=== PATIENT | male | born 1950 | race African-American/Black ===

== ENCOUNTER 2023-06-19 21:36 | Emergency (ER) | payer MEDICARE, MEDICAID, SELFPAY ==
--- NOTE | ~2023-06-19 | XR_ITS ---
EXAMINATION: XR chest 1V portable DATE: 06/19/2023 22:21 INDICATION: Fall. TECHNIQUE: A single frontal view of the chest was obtained. COMPARISON: None. FINDINGS: There is no pneumonia, pleural effusion, or pneumothorax. The heart size is normal. IMPRESSION: 1. No acute cardiopulmonary disease. Reviewed, dictated and finalized at location A. ECTIONAL CLASSIFICATION COUNSELOR
--- NOTE | ~2023-06-19 | CT_ITS ---
EXAMINATION: CT brain wo con DATE: 06/19/2023 23:19 INDICATION: Fall. Dementia. Epilepsy. TECHNIQUE: Computed tomography (CT) of the head was performed without intravenous contrast. The mA wa s adjusted according to patient size. Iterative reconstruction technique was employed. The dose-lengt h product was 1513.33 mGy-cm. COMPARISON: None FINDINGS: There are old infarcts involving the bilateral frontal lobes. There is no intracranial hemo rrhage, acute infarction, or abnormal intracranial mass lesion. The ventricles are normal in size. Th ere is mild mucosal thickening in the paranasal sinuses. The orbits are normal. There are bilateral m astoid effusions. IMPRESSION: 1. Old infarcts in the frontal lobes. Reviewed, dictated and finalized at location A. HOUSE SUPERVISOR
--- NOTE | ~2023-06-19 | CT_ITS ---
EXAMINATION: CT lumbar spine wo con DATE: 06/19/2023 23:19 INDICATION: Fall. TECHNIQUE: Computed tomography (CT) of the lumbar spine was performed without intravenous contrast. A utomated exposure control and iterative reconstruction technique were employed. The dose-length produ ct was 806.40 mGy-cm. COMPARISON: None FINDINGS: There is a 3.5 cm cyst in right kidney. Aortic atherosclerosis is noted. There is 6 degrees levocurvature of lumbar spine. There is mild chronic anterior wedging of T11 and T12 vertebral phil s. There are bridging endplate osteophytes from T10 to T12, consistent with diffuse idiopathic skelet al hyperostosis (DISH). There is mildly decreased disc height at T11-T12. The following disc levels a re specifically discussed: L1-L2: The disc is bulging. There is moderate bilateral facet joint osteoarthritis. There is mild jevon ateral neural foraminal stenosis. There is mild central canal stenosis. L2-L3: The disc is bulging. There is moderate bilateral facet joint osteoarthritis. There is mild jevon ateral neural foraminal stenosis. There is mild central canal stenosis. L3-L4: The disc is bulging. There is severe bilateral facet joint osteoarthritis. There is mild bilat eral neural foraminal stenosis. There is mild central canal stenosis. L4-L5: The disc is bulging. There is severe bilateral facet joint osteoarthritis. There is mild bilat eral neural foraminal stenosis. There is moderate central canal stenosis. L5-S1: The disc is bulging. There is severe bilateral facet joint osteoarthritis. There is mild bilat eral neural foraminal stenosis. There is mild central canal stenosis. IMPRESSION: 1. Moderate lumbar spondylosis. Reviewed, dictated and finalized at location A. METER CHECKER
--- NOTE | ~2023-06-19 | CT_ITS ---
EXAMINATION: CT cervical spine wo con DATE: 06/19/2023 23:19 INDICATION: Neck injury. Fall. TECHNIQUE: Computed tomography (CT) of the cervical spine was performed without intravenous contrast. Automated exposure control and iterative reconstruction technique were employed. The dose-length pro duct was 261.43 mGy-cm. COMPARISON: None FINDINGS: There is mild scarring at the lung apices. There is 8 degrees dextrocurvature of cervical s pine. Vertebral body heights are normal. There are bulky anterior endplate osteophytes at all levels. The osteophytes are bridging from C5 to T1 and at T2-T3, consistent with diffuse idiopathic skeletal hyperostosis (DISH). There is a fracture of the anterior osteophytes at C5-C6 with extension of the fracture line into the C6 vertebral body. There is mildly decreased disc height at C6-C7. The followi ng disc levels are specifically discussed: C2-C3: There is mild bilateral uncovertebral joint osteoarthritis. There is mild right and severe lef t facet joint osteoarthritis. There is no neural foraminal stenosis. There is mild central canal sten osis. C3-C4: There is severe right and mild left uncovertebral joint osteoarthritis. There is severe bilate ral facet joint osteoarthritis. There is mild bilateral neural foraminal stenosis. There is mild cent ral canal stenosis. C4-C5: There is mild bilateral uncovertebral joint osteoarthritis. There is moderate right and severe left facet joint osteoarthritis. There is no neural foraminal stenosis. There is mild central canal stenosis. C5-C6: There is mild bilateral uncovertebral joint osteoarthritis. There is mild bilateral facet join t osteoarthritis. There is mild bilateral neural foraminal stenosis. There is mild central canal sten osis. C6-C7: There is mild bilateral uncovertebral joint osteoarthritis. There is mild lateral facet joint osteoarthritis. There is no neural foraminal stenosis. There is mild central canal stenosis. C7-T1: There is no uncovertebral joint osteoarthritis. There is mild bilateral facet joint osteoarthr itis. There is no neural foraminal stenosis. There is no central canal stenosis. IMPRESSION: 1. Nondisplaced fracture involving C6 vertebral body and the anterior osteophytes at C5-C6. 2. DISH. 3. Mild cervical spondylosis. Reviewed, dictated and finalized at location A. CONNECTOR REPAIRER IMPRESSION: 1. Nondisplaced fracture involving C6 vertebral body and the anterior osteophyt es at C5-C6. 2. DISH. 3. Mild cervical spondylosis.
[2023-06-19 21:36] VITALS: BP 137/65; PULSE 95; RESP 12; TEMP 36.2; O2SAT 99
--- NOTE | 2023-06-19 21:51 | ECG_ITS ---
Measurements Intervals [place] Rate: 94 P: 67 WY: 169 QRS: 51 QRSD: 82 T: 74 QT: 341 QTc: 428 Interpretive Statements SINUS RHYTHM POSSIBLE LEFT ATRIAL ENLARGEMENT [-0.1mV P WAVE IN V1/V2] BORDERLINE ECG NO PREVIOUS ECG AVAILABLE FOR COMPARISON Electronically Signed On 06-20-2023 8:19:47 DIRECTORY OPERATOR by Mitchell Torres M.D.
[2023-06-19 21:52] VITALS: BP 137/65; PULSE 95; RESP 12; O2SAT 99
--- NOTE | 2023-06-19 21:54 | ED.FALL ---
HPI - Fall General Chief Complaint: Fall Stated Complaint: fall Time Seen by Provider: 06/19/23 21:42 History of Present Illness HPI Narrative: 73-year-old male with a history of diabetes, dementia epilepsy reports via EMS from [facility] for a ground level fall. Patient arrived the hospital to cervical collar in place. Per EMS, the fall was unwitnessed. [facility] staff heard a thump and rushed to the patient. None the patient on the ground. Patient arrives with abrasion to his forehead otherwise no evidence of trauma. He admits to having neck pain and a slight headache but denies other pain or injury. Patient is A&O x1 at baseline. [facility] contacted and states patient normally ambulates with 2 assistants. Related Data Allergies Allergy/AdvReac Type Severity Reaction Status Date / Time No Known Allergies Allergy Verified 06/20/23 01:14 Review of Systems Review of Systems: CONSTITUTIONAL: Denies fever, chills, or sweats. EYES: Denies visual changes, redness, or discharge. ENT: Denies rhinorrhea, congestion, sore throat, or otalgia. CARDIOVASCULAR: Denies chest pain, palpitations, or edema. RESPIRATORY: Denies cough or dyspnea. GASTROINTESTINAL: Denies abdominal pain, nausea, vomiting, or diarrhea. GENITOURINARY: Denies dysuria or hematuria. SKIN: Denies rash or itching. MUSCULOSKELETAL: See HPI NEUROLOGIC: see HPI PSYCHIATRIC: Denies anxiety or depression. Exam Narrative: GENERAL: chronically ill-appearing elderly male lying in exam bed. HEAD: Normocephalic. Superficial abrasion to the left forehead, bleeding controlled. EYES: PERRLA and EOMI. ENT: Nares clear, no rhinorrhea or epistaxis. Mucous membranes moist. NECK: Cervical collar in place. CHEST: Clear to auscultation. No respiratory distress. No tenderness, ecchymosis, step-offs or deformities to chest wall or ribs HEART: Regular rate and rhythm. No murmur heard. Normal peripheral pulses. ABDOMEN: Soft, nontender, nondistended, normal active bowel sounds. EXTREMITIES: Normal range of motion. No edema. no tenderness to bilateral upper or lower extremities with full range of motion. SKIN: Warm, dry, no rash. NEURO: No focal deficits. Alert and oriented x1. Cranial nerves 2-12 intact. Strength 5/5 in BUE and BLE. Sensation intact throughout. Unable to perform pronator drift or urxdap-cd-nney secondary to mental status. Course Vital Signs Vital signs: Vital Signs Temperature 97.2 F L 06/19/23 21:36 Pulse Rate 95 06/19/23 21:36 Respiratory Rate 12 06/19/23 21:36 Blood Pressure 137/65 06/19/23 21:36 Pulse Oximetry 99 06/19/23 21:36 Oxygen Delivery Room Air 06/19/23 21:36 Temperature 97.2 F L 06/19/23 21:36 Pulse Rate 88 06/20/23 00:24 Respiratory Rate 13 06/20/23 00:24 Blood Pressure 119/67 06/20/23 00:24 Pulse Oximetry 100 06/20/23 00:24 Oxygen Delivery Room Air 06/19/23 21:36 MDM - Fall MDM Narrative Medical decision making narrative: 73-year-old male reports via EMS for evaluation of a ground level fall that occurred prior to arrival. See HPI for further history. Vitals are stable. Exam is significant for the above. He is A&O x1 which is his baseline. Broad workup initiated given poor historian and the fall was unwitnessed. Cbc without leukocytosis. His hemoglobin is 11.6 with normal MCV. No priors for comparison. Chemistries are largely unremarkable. Urinalysis with nitrite positive urinary tract infection. Urine culture pending. EKG shows sinus rhythm, no ischemic changes. Troponin normal. CT head shows grossly no acute intracranial hemorrhage or acute transcortical infarct. 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 CT cervical spine shows a fracture involving the anterior osteophyte bridging the C5 extending into the superior endplate of C6. Lumbar spine shows no acute osseous pathology. CT cervical spine resul
[2023-06-19 22:01] VITALS: BP 140/66; PULSE 94; RESP 13; O2SAT 99
[2023-06-19 22:12] LABS: Basophils Percent Auto 0.4 % (0.2-1.2); Eosinophils Absolute Auto 0.4 K/mm3 (0-0.3); Eosinophils Percent Auto 7.3 % (0-4.4); Hemoglobin 11.6 g/dL (14.0-18.0); Immature Granulocyte Absolute 0.01 K/mm3 (0.00-0.031); Immature Granulocyte Percent A 0.2 % (0-0.5); Lymphocytes Absolute Auto 1.45 K/mm3 (0.9-3.2); Lymphocytes Percent Auto 27.9 % (18.3-44.2); Mean Corpuscular HGB Conc 30.5 g/dl (32-36); Mean Corpuscular Hemoglobin 29.4 pg (26-34); Mean Corpuscular Volume 96.4 fl (80-100); Mean Platelet Volume 11.1 fl (7.4-10.4); Monocytes Absolute Auto 0.5 K/mm3 (0.1-0.6); Neutrophils Absolute Auto 2.8 K/mm3 (1.3-6.7); Neutrophils Percent Auto 54.2 % (45.5-73.1); Platelet Count Result 228 k/mm3 (150-375); Red Blood Count 3.94 M/mm3 (4.6-6.20); Red Cell Distribution Width 14.7 % (11.5-14.5); White Blood Count 5.2 K/mm3 (4.5-10.0)
[2023-06-19 22:25] LABS: Alanine Aminotransferase 12 U/L (6-50); Albumin Level 4.1 g/dL (3.5-5.1); Alkaline Phosphatase 67 U/L (38-126); Anion Gap 5 mmol/L (8-16); Aspartate Amino Transferase 18 U/L (17-59); Bilirubin,Total 0.4 mg/dL (0.2-1.3); Blood Urea Nitrogen 16 mg/dL (9-20); Calcium 9.7 mg/dL (8.4-10.2); Carbon Dioxide 30 mmol/L (22-30); Chloride 106 mmol/L (98-107); Estimated CRCL calculation 73 ml/min; Estimated Glomerular Filt Rate > 60; Glucose 107 mg/dL (65-110); Potassium 4.1 mmol/L (3.4-5.0); Sodium 141 mmol/L (137-145)
[2023-06-19 22:35] LABS: Troponin I < 0.012 ng/mL (0.000-0.034)
[2023-06-19 22:55] LABS: Appearance Urine Cloudy (Clear); Bacteria Urine 4+ /hpf; Bilirubin Urine Negative (Negative); Blood Urine Negative (Negative); Color Urine Yellow (Yellow); Glucose Urine UA Negative (Negative); Ketones Urine Negative (Negative); Leukocyte Esterase Ur 2+ LEU/UL (Negative); Nitrate Urine Positive (Negative); Non Pathogenic Casts 0-2; Protein Urine Trace mg/dL (Negative); RBC Urine 0-2 /hpf (0-2); Specific Grav Ur 1.018 (1.001-1.035); Squamous Epithelial Cell Urine None seen /hpf (Few); Urobilinogen Urine 0.2 mg/dL (<2.0); WBC Urine 51-100 /hpf
[2023-06-19 23:23] LABS: Add Urine Microscopic? YES
[2023-06-19 23:57] VITALS: PULSE 88; RESP 15
[2023-06-20] VITALS (7 sets, daily range): BP systolic 112–131; BP diastolic 61–70; PULSE 82–91; RESP 11–16; O2SAT 95–100
[2023-06-20] MEDS: CEPHALEXIN 500 MG CAPSULE PO (01:59)
== END 2023-06-20 03:40 ==
PROVIDERS: Emergency Provider Physician Assistant; PCP Internal Medicine
DX: S12.401A Unspecified nondisplaced fracture of fifth cervical vertebra, initial encounter for closed fracture (principal); N30.00 Acute cystitis without hematuria; E11.9 Type 2 diabetes mellitus without complications; F03.90 Unspecified dementia, unspecified severity, without behavioral disturbance, psychotic disturbance, mood disturbance, and anxiety; W18.30XA Fall on same level, unspecified, initial encounter
CPT/HCPCS: 36415; 70450; 71045; 72125; 72131; 80053; 81001; 84484; 85025; 87077; 87086; 87186; 93005; 99284; A9270

== ENCOUNTER 2023-07-21 18:36 | Emergency (ER) | payer MEDICARE, MEDICAID, SELFPAY ==
[2023-07-21] VITALS (14 sets, daily range): BP systolic 142–246; BP diastolic 66–124; PULSE 89–118; RESP 10–20; TEMP 36.9; O2SAT 95–100
--- NOTE | ~2023-07-21 | XR_ITS ---
[id number] 07/21/2023 19:19 Indication: Left knee pain. Patient contracted. Procedure: 2 views left knee Comparison: No prior studies for comparison. Findings: There is flexion at the knee, possibly due to contraction. No gross fracture or traumatic m alalignment. No foreign bodies. Impression: 1: No acute bone or joint abnormality. Reviewed, dictated and finalized at location A. Impression: 1: No acute bone or joint abnormality.
--- NOTE | ~2023-07-21 | CT_ITS ---
EXAMINATION: CT brain wo con DATE: 07/21/2023 19:31 INDICATION: Status post fall. Dementia. TECHNIQUE: Computed tomography (CT) of the head was performed without intravenous contrast. The dose- length product was 681.00 mGy-cm. Automated exposure control and iterative reconstruction technique w ere employed. COMPARISON: CT dated 06/19/2023 FINDINGS: There are 2 parenchymal hemorrhages of the frontal lobes, right temporal-parietal lobe and left thalamus. There is surrounding vasogenic edema in the right temporal lobe. Cannot exclude a smal l component of subarachnoid hemorrhage in the frontal lobes. No midline shift. No ventriculomegaly. P aranasal sinuses and mastoids are pneumatized. No depressed skull fractures. IMPRESSION: 1. Acute hemorrhage of the frontal lobes, left thalamus and right temporal-parietal lobe with moderat e surrounding vasogenic edema in the right temporal lobe. Possible subarachnoid component to the fron alpesh lobe hemorrhages. Dr. Ted Saini discussed with Dr. Francesco Wilks PA-C at 07/21/2023 19:38 CDT. Reviewed, dictated and finalized at location A. IMPRESSION: 1. Acute hemorrhage of the frontal lobes, left thalamus and right temporal-kailash etal lobe with moderate surrounding vasogenic edema in the right temporal lobe. Possible subarachnoid component to the frontal lobe hemorrhages. Dr. Ted Saini discussed with Dr. Francesco Wilks PA-C at 07/21/2023 19:38 CDT.
--- NOTE | ~2023-07-21 | XR_ITS ---
XR hip LT 2V w AP pelvis 07/21/2023 19:19 Indication: Pelvic pain. Contraction of the patient. Procedure: AP pelvis and 2 views left hip Comparison: No prior studies for comparison. Findings: Severe osteoarthritis of the left hip. No acute fracture or traumatic malalignment. No fore ign bodies. There is lower lumbar spondylosis. Impression: 1: Severe osteoarthritis of the left hip. Reviewed, dictated and finalized at location A. Impression: 1: Severe osteoarthritis of the left hip.
--- NOTE | ~2023-07-21 | CT_ITS ---
EXAMINATION: CT cervical spine wo con DATE: 07/21/2023 19:34 INDICATION: Status post fall. Neck pain. TECHNIQUE: Computed tomography (CT) of the cervical spine was performed without intravenous contrast. The dose-length product was 410 mGy-cm. Automated exposure control and iterative reconstruction technique were employed. COMPARISON: CT dated 06/19/2023 FINDINGS: Prominent bridging osteophytes at multiple levels consistent with diffuse idiopathic skelet al hyperostosis. There are fractures of the anterior osteophytes at C2-3, C3-4, C4-5 and C5-6 which a re unchanged from prior examination. No acute fracture or traumatic malalignment. Mild dextroscoliosi s. Odontoid process is normal. Mild multilevel uncinate and facet hypertrophy. Lung apices are normal . No significant paraspinal soft tissue abnormality. Craniovertebral junction is unremarkable. IMPRESSION: 1. No acute abnormality of the cervical spine. 2: Flowing ventral osteophytes at multiple levels with associated ventral osteophyte fractures descri bed above which appear chronic. Reviewed, dictated and finalized at location A. IMPRESSION: 1. No acute abnormality of the cervical spine. 2: Flowing ventral osteophytes at multiple levels with associated ventral osteo phyte fractures described above which appear chronic.
--- NOTE | ~2023-07-21 | XR_ITS ---
XR chest ET placement 07/21/2023 22:03 Indication: Postintubation. Respiratory distress Procedure: AP portable chest Comparison: 06/19/2019 Findings: Endotracheal tube tip 5.4 cm above the patsy. Mild bilateral interstitial infiltrates. Tien g bases with peribronchial thickening. No pleural effusion or pneumothorax. No acute osseous abnormal ity. Impression: 1: Bibasilar interstitial infiltrates which may represent edema or pneumonia. Reviewed, dictated and finalized at location A. Impression: 1: Bibasilar interstitial infiltrates which may represent edema or pneumonia.
--- NOTE | 2023-07-21 18:50 | ED.FALL ---
HPI - Fall General Chief Complaint: Fall Stated Complaint: fall, head lac Time Seen by Provider: 07/21/23 18:39 Source: patient Mode of arrival: EMS Limitations: dementia History of Present Illness HPI Narrative: This is a 73-year-old male with PMH of diabetes, dementia, seizure disorder and recent cervical spine fracture who presents to the ED via EMS for chief complaint of head injury and fall. He is coming from [facility] unit for evaluation after her having a fall while in dining room. EMS reports patient loss balance when he tried to stand up. The staff reported a brief loss of consciousness. They state that he hit his head and suffered a laceration. Denied any seizure-like activity. The fall was witnessed. Denied postictal phase. The patient is A&O x1 at baseline and unable to provide any useful information regarding the fall today. He does point to his left thigh and knee when asked about where his pain is. Related Data Home Medications Medication Instructions Recorded Confirmed atorvastatin 10 mg tablet mg 07/21/23 07/21/23 carvedilol 25 mg tablet mg 07/21/23 ergocalciferol (vitamin D2) 1,250 07/21/23 mcg (50,000 unit) capsule hydralazine 50 mg tablet mg 07/21/23 lamotrigine 200 mg tablet mg 07/21/23 levetiracetam 500 mg tablet mg PO 07/21/23 lisinopril 40 mg tablet mg 07/21/23 metformin 1,000 mg tablet mg 07/21/23 tamsulosin 0.4 mg capsule mg PO 07/21/23 Allergies Allergy/AdvReac Type Severity Reaction Status Date / Time No Known Allergies Allergy Verified 07/21/23 18:51 Review of Systems Review of Systems: All systems as dictated in HPI Exam Narrative: GENERAL: Well-appearing, well-nourished, and in no acute distress. HEAD: Normocephalic, atraumatic. EYES: PERRLA and EOMI. ENT: Nares clear, no rhinorrhea or epistaxis. Mucous membranes moist. Oropharynx without tonsillar hypertrophy exudate or other lesions. NECK: Supple. No adenopathy or masses. CHEST: No respiratory distress. Clear to auscultation. No wheezes rales or rhonchi HEART: Regular rate and rhythm. No murmur heard. Normal peripheral pulses. ABDOMEN: Soft, nontender, nondistended, normal active bowel sounds. MSK: Normal range of motion. No edema. No tenderness throughout the extremities. SKIN: 3 cm laceration to the left from scalp/forehead. Bleeding controlled. NEURO: Alert. Responds to his name but will not answer the question appropriately. Responds to questions with mumbled words and follows basic commands. Moves all extremities spontaneously. PSYCH: Normal mood and affect. Course Vital Signs Vital signs: Vital Signs Temperature 98.4 F 07/21/23 18:38 Pulse Rate 95 07/21/23 18:38 Respiratory Rate 16 07/21/23 18:38 Pulse Oximetry 99 07/21/23 18:38 Oxygen Delivery Room Air 07/21/23 18:38 Temperature 98.4 F 07/21/23 18:38 Pulse Rate 108 H 07/21/23 21:47 Respiratory Rate 10 L 07/21/23 21:42 Blood Pressure 184/85 H 07/21/23 21:47 Pulse Oximetry 100 07/21/23 21:42 Oxygen Delivery Mechanical Ventilation 07/21/23 20:45 Fraction of Inspired Oxygen 50 07/21/23 20:45 Procedures Intubation Intubation #1: Intubation Date: 07/21/23 Intubation Time: 20:59 Time out performed: Yes sedative: Etomidate Mg Given: 20 paralytic: Rocuronium Mg Given: 100 Laryngoscope: fiber optic video scope Assist Device Used: fiber optic device Tube Size (cm): 7.5 Method of Intubation: orotracheal Number of Attempts: 1 Tube Secured Depth (cm): 25 Tube Secured Location: lips Tube Placement Confirmation: visualized tube passing through cords, equal breath sounds bilaterally, no breath sounds over epigastrium and confirmation by capnometry Patient Tolerated Procedure: well and no complications Intubation Complications: none MDM - Fall MDM Narrative Medical decision making sofya
[2023-07-21 19:57] LABS: Alanine Aminotransferase 17 U/L (6-50); Albumin Level 4.2 g/dL (3.5-5.1); Alkaline Phosphatase 49 U/L (38-126); Anion Gap 4 mmol/L (8-16); Aspartate Amino Transferase 24 U/L (17-59); Bilirubin,Total 0.4 mg/dL (0.2-1.3); Blood Urea Nitrogen 19 mg/dL (9-20); Calcium 9.4 mg/dL (8.4-10.2); Carbon Dioxide 30 mmol/L (22-30); Chloride 104 mmol/L (98-107); Estimated Glomerular Filt Rate > 60; Glucose 151 mg/dL (65-110); Potassium 4.1 mmol/L (3.4-5.0); Sodium 138 mmol/L (137-145)
[2023-07-21 20:20] LABS: Appearance Urine Clear (Clear); Bacteria Urine None Seen /hpf; Bilirubin Urine Negative (Negative); Blood Urine Negative (Negative); Color Urine Yellow (Yellow); Glucose Urine UA Negative (Negative); Ketones Urine Negative (Negative); Leukocyte Esterase Ur Trace LEU/UL (Negative); Nitrate Urine Negative (Negative); Non Pathogenic Casts 0-2; Protein Urine Trace mg/dL (Negative); RBC Urine 0-2 /hpf (0-2); Specific Grav Ur 1.019 (1.001-1.035); Squamous Epithelial Cell Urine None Seen /hpf (Few); Urobilinogen Urine 0.2 mg/dL (<2.0); WBC Urine 0-5 /hpf (0-3); pH Urine 7.5 (5.0-9.0)
[2023-07-21 20:24] LABS: Add Urine Microscopic? YES
[2023-07-21] MEDS: ONDANSETRON INJ 4 MG/2 ML VIAL IV PUSH (20:25)
[2023-07-21] MEDS: LORazepam INJ (*CRX) 2 MG/ML VIAL 1 MG IV PUSH ×2 (20:36→20:38)
[2023-07-21] MEDS: levETIRAcetam 1000MG/NACL100ML 1,000 MG/100 ML BAG 400 MG IVPB (20:36)
[2023-07-21] MEDS: ROCURONIUM BROMIDE 50 MG/5 ML VIAL 100 MG IV PUSH (20:46)
[2023-07-21] MEDS: ETOMIDATE 20 MG/10 ML AMPUL IV PUSH (20:46)
[2023-07-21] MEDS: HYDROmorphone HCL INJ (*CRX) 1 MG/ML SYR IV PUSH (20:52)
[2023-07-21] MEDS: LORazepam INJ (*CRX) 2 MG/ML VIAL IV PUSH (20:52)
[2023-07-21] MEDS: niCARdipine 20 MG/200 ML 20 MG/200 ML BAG 50 MG IV CONT (21:03)
[2023-07-21 21:13] LABS: Base Excess ABG -2.5 mEq/l (+/-2.0); Fractional Inspired Oxygen 50 %; HCO3 ABG 22.8 mEq/l (22.0-26.0); Oxygen Saturation ABG 99.3 % (95.0-100.0); Oxyhemoglobin 98.2 % THb (90.0-100.0); PCO2 ABG 41.3 mmHg (35.0-45.0); PO2 FiO2 Ratio Arterial Blood 4.08 %; pH ABG 7.359 (7.350-7.450)
[2023-07-21 21:14] LABS: Device VENTILATOR; Modified Allen's Test Pass; Site Drawn LEFT RADIAL
[2023-07-21 21:15] LABS: Arterial Blood Gas Minute Volume 7.2 LPM; Arterial Blood Gas PEEP 5 cmH2O; Arterial Blood Gas Tidal Volume 450 ml; Arterial Blood Gas Vent Mode ASV; Arterial Blood Gas Ventilator rate 16 /MIN; Peak Inspiratory Pressure 17 cmH2O
[2023-07-21] MEDS: RAPID SEQUENCE INTUBATION KIT 1 EACH (21:15)
[2023-07-21] MEDS: FENTANYL 2,500MCG/NS250ML(*CRX 2,500 MCG/250 ML BAG IV CONT (21:23)
[2023-07-21] MEDS: MIDAZOLAM 100MG/NS 100ML(*CRX) 100 MG/100 ML BAG IV CONT (21:27)
[2023-07-21 21:29] LABS: Hematocrit 36.8 % (42.0-52.0); Hemoglobin 11.5 g/dL (14.0-18.0); Mean Corpuscular HGB Conc 31.3 g/dl (32-36); Mean Corpuscular Hemoglobin 29.8 pg (26-34); Mean Corpuscular Volume 95.3 fl (80-100); Mean Platelet Volume 11.1 fl (7.4-10.4); Platelet Count Result 167 k/mm3 (150-375); Red Blood Count 3.86 M/mm3 (4.6-6.20); Red Cell Distribution Width 14.5 % (11.5-14.5); White Blood Count 11.5 K/mm3 (4.5-10.0)
[2023-07-21 21:47] LABS: INR 1.1
[2023-07-21 21:48] LABS: Partial Thromboplastin Time 30.9 Seconds (22.3-36.8)
[2023-07-21 21:49] LABS: Eosinophils Absolute Manual 0.34 K/mm3 (0.02-0.50); Eosinophils Percent Manual 3 % (0-4); Monocytes Absolute Manual 0.34 K/mm3 (0.1-0.90); Monocytes Percent Manual 3 % (3-9); Neutrophils Percent Manual 87 % (46-73); Total Cells Counted 100
[2023-07-21 21:50] LABS: Hypochromasia 1+; Platelet Estimate Adequate (Adequate); Schistocytes None Seen
--- NOTE | 2023-07-21 22:00 | PC.NURSE ---
Ativan override around 2029 while patient was seizing. Verbal order read back by Francesco SHAFER was for 1 mg Ativan IVP. While giving dose, SONI Maya was in the room and stated to give the remaining 1 mg Ativan. Pyxis states there is undocumented waste but patient was given the full 2 mg per verbal order.
--- NOTE | 2023-07-21 22:00 | PC.NURSE ---
Patient was brought back to ED room 4 around 1930. Patient was observed not being hooked to cardiac and respiratory monitoring. This RN and EDT Yessy went into room to straighten patient's linens, pull patient up in bed, and get patient hooked back onto monitor and straight cathed for urine. During an attempt to start an IV, the patient vomited. SONI Lora made aware. This RN, FABI Krishnamurthy, and Hyun RN were cleaning patient up, changing linens, and getting an IV and bloodwork when patient began to have a seizure. SONI Lora and Dr. Ontiveros notified. Patient was intubated and being transferred to [facility]. Family at bedside.
--- NOTE | 2023-07-21 22:14 | PC.NURSE ---
Patient's 7.5 ETT was 25 at the lip. Xray taken and veiwed by SONI Maya and Dr. Ontiveros. ETT advanced to 27 at the lip. Confirmed placement by Dr. Ontiveros and patient being transferred by [facility].
== END 2023-07-21 22:14 | disposition short-term general hospital (02) ==
LOC: ANHED 19:08
PROVIDERS: Emergency Provider Physician Assistant; PCP Internal Medicine
DX: S06.301A Unspecified focal traumatic brain injury with loss of consciousness of 30 minutes or less, initial encounter (principal); S01.01XA Laceration without foreign body of scalp, initial encounter; E11.9 Type 2 diabetes mellitus without complications; F03.90 Unspecified dementia, unspecified severity, without behavioral disturbance, psychotic disturbance, mood disturbance, and anxiety; G40.909 Epilepsy, unspecified, not intractable, without status epilepticus; M16.12 Unilateral primary osteoarthritis, left hip; M25.78 Osteophyte, vertebrae; Z79.84 Long term (current) use of oral hypoglycemic drugs; W18.39XA Other fall on same level, initial encounter
CPT/HCPCS: 31500; 36415; 36600; 70450; 72125; 73502; 73560; 80053; 82805; 85025; 85610; 85730; 94002; 96365; 96367; 96375; 99291; J1170; J1953; J2060; J2250; J2404; J2405; J3010